=== PATIENT | female | born 1955 | race Caucasian/White ===

== ENCOUNTER 2024-11-13 10:26 | Emergency (ER) | payer BC, MEDICARE | END 2024-11-13 11:37 | disposition home or self-care (01) | LOC: MADERS 10:26 | DX: S86.911A Strain of unspecified muscle(s) and tendon(s) at lower leg level, right leg, initial encounter (principal); F17.210 Nicotine dependence, cigarettes, uncomplicated; W17.2XXA Fall into hole, initial encounter | CPT/HCPCS: 99283 ==